=== PATIENT | male | born 1980 | race Caucasian/White ===

== ENCOUNTER 2018-01-10 07:59 | Emergency (ER) | payer BC ==
[2018-01-10 08:06] VITALS: BP 134/87
--- NOTE | 2018-01-10 09:19 | EDM.PDOC ---
<Shauna Guadarrama - Last Filed: 01/10/18 09:11> ED HPI GENERAL MEDICAL PROBLEM - General Chief Complaint: Chest Pain Stated Complaint: HIGH BLOOD PRESSURE Time Seen by Provider: 01/10/18 08:24 - History of Present Illness INITIAL COMMENTS - FREE TEXT/NARRATIVE: Patient is a 37 year old male here today for chest discomfort and lightheadedness. Patient was driving this morning and became dizzy and lightheaded. He took his blood pressure at [employer] and said it was 150s/100s. He states the room was spinning, his heart was racing, and he had tingling in his arms, fingers, and face. He has associated shortness of breath and nausea but no vomiting. He denies losing consciousness. He had a similar episode about 8 years ago that he said was ruled to be related to anxiety. He has a history of hiatal hernia and acid reflux, but does not take daily medication for this. He does not take any regular medications and follows with his PCP yearly. He has a family history of hypertension in his mother. Chest Pain Score (Numeric/FACES): 3 - Related Data Allergies Allergy/AdvReac Type Severity Reaction Status Date / Time No Known Allergies Allergy Verified 01/10/18 08:06 Home Meds: Home Meds . [No Known Home Meds] 01/01/15 [History] Past Medical History Hematologic History: Reports: Hemochromatosis - Past Surgical History GI Surgical History: Reports: Cholecystectomy Social & Family History - Tobacco Use Smoking Status *Q: Never Smoker - Caffeine Use Caffeine Use: Reports: None - Recreational Drug Use Recreational Drug Use: No Course - Vital Signs Last Recorded V/S: Last Vital Signs Temp 35.7 C 01/10/18 08:01 Pulse 99 01/10/18 08:01 Resp 20 01/10/18 08:01 BP 134/87 01/10/18 08:01 Pulse Ox 100 01/10/18 08:01 Departure - Departure Disposition: Home, Self-Care 01 Clinical Impression: Hyperventilation syndrome Instructions: Hyperventilation Referrals: Lena Parker PA [Primary Care Provider] - Forms: ED Department Discharge Additional Instructions: You were seen in the emergency room for tingling of your head, hands, and legs, with associated chest discomfort, nausea, and dizziness. Workup in the ER included an ECG, which was normal. Based on your history, your symptoms were MOST LIKELY due to hyperventilation, which is usually caused by anxiety, but is sometimes caused by other medical problems. Further workup to exclude other medical problems was offered, but declined. If the symptoms remain rare, no treatment is necessary, however, if these become more frequent and start to diminish the quality of your life, we recommend that you follow-up with your PCP, Lena Parker, to discuss treatment options for anxiety. If any other problems, please do not hesitate to return to the ER. <Hao Minaya - Last Filed: 01/16/18 09:10> ED ROS GENERAL - Review of Systems Review Of Systems: See Below Free Text/Narrative/Comment: See Dr. Minaya's note for this info. ED EXAM, GENERAL - Physical Exam Exam: See Below Free Text/Narrative:: see Dr. Minaya's note for this documentation. Departure - Departure Time of Disposition: 09:15
--- NOTE | 2018-01-10 09:19 | EDM.PDOC ---
ED HPI GENERAL MEDICAL PROBLEM - General Chief Complaint: Chest Pain Stated Complaint: HIGH BLOOD PRESSURE Time Seen by Provider: 01/10/18 08:24 Source of Information: Reports: Patient, Family () History Limitations: Reports: No Limitations - History of Present Illness INITIAL COMMENTS - FREE TEXT/NARRATIVE: The patient states that he felt "crappy" this morning, by which he meant he had shortness of breath and upper abdominal discomfort. He went to [facility] but felt worse. He developed tingling of his entire face, hands, and legs. He felt dizzy. He felt slight chest discomfort. He had nausea, but no emesis. No abdominal pain. His symptoms resolved after about 20 minutes. Upon arrival to the ED, it was noted that the patient's oxygen saturation was 100% on room air. The patient states that he had numerous episodes about 8 years ago. At time, he was stationed in [place], and his physicians felt that he was suffering from anxiety. The patient is not currently being treated for anxiety. The patient's PCP is Lena Parker. Chest Pain Score (Numeric/FACES): 3 - Related Data Allergies Allergy/AdvReac Type Severity Reaction Status Date / Time No Known Allergies Allergy Verified 01/10/18 08:06 Home Meds: Home Meds . [No Known Home Meds] 01/01/15 [History] Past Medical History Gastrointestinal History: Reports: GERD, Hiatal Hernia Psychiatric History: Reports: Panic Attack Hematologic History: Reports: Hemochromatosis - Past Surgical History GI Surgical History: Reports: Cholecystectomy Social & Family History - Tobacco Use Smoking Status *Q: Never Smoker - Caffeine Use Caffeine Use: Reports: None - Alcohol Use Alcohol Use History: Yes Alcohol Use Frequency: Socially - Recreational Drug Use Recreational Drug Use: No - Living Situation & Occupation Living situation: Reports: , with Spouse, with Family (2 kids) 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 ED EXAM, GENERAL - Physical Exam Exam: See Below Exam Limited By: No Limitations General Appearance: Alert, WD/WN, No Apparent Distress Eye Exam: Bilateral Eye: Normal Inspection Ears: Normal External Exam, Hearing Grossly Normal Nose: Normal Inspection, No Blood Throat/Mouth: Normal Inspection, Normal Lips, Normal Voice, No Airway Compromise Head: Atraumatic, Normocephalic Neck: Normal Inspection, Full Range of Motion Respiratory/Chest: No Respiratory Distress, Lungs Clear, Normal Breath Sounds, No Accessory Muscle Use Cardiovascular: Normal Peripheral Pulses, Regular Rate, Rhythm, No Gallop, No JVD, No Murmur, No Rub Peripheral Pulses: 4+: Radial (L), Radial (R) GI/Abdominal: Normal Bowel Sounds, Soft, Non-Tender, No Organomegaly, No Distention, No Abnormal Bruit, No Mass (Male) Exam: Deferred Rectal (Males) Exam: Deferred Back Exam: Normal Inspection, Full Range of Motion, NT Extremities: Normal Inspection, Normal Range of Motion, No Pedal Edema, Normal Capillary Refill Neurological: Alert, Oriented, Normal Cognition, No Motor/Sensory Deficits Psychiatric: Normal Affect Skin Exam: Warm, Dry, Intact, Normal Color, No Rash EKG INTERPRETATION EKG Date: 01/10/18 Time: 08:04 Rhythm: NSR Rate (Beats/Min): 98 [place]: Normal P-Wave: Present QRS: Normal ST-T: Normal QT: Normal Comparison: NA - No Prior EKG Course - Vital Signs Last Recorded V/S: Last Vital Signs Temp 35.7 C 01/10/18 08:01 Pulse 99 01/10/18 08:01 Resp 20 01/10/18 08:01 BP 134/87 01/10/18 08:01 Pulse Ox 100 01/10/18 08:01 - Re-Assessments/Exams Free Text/Narrative Re-Assessment/Exam: 01/10/18 09:11 The patient was likely suffering from hyperventilation syndrome, most likely due to anxiety. His symptoms have completely resolved. Workup to exclude metabolic causes for hyperventilation, such as PE, was offered, but declined. I am recommending that he follow up with his PCP, Lena Parker, should his symptoms become more frequent or persistent, to discuss treatment options for anxiety. Departure - Departure Time of Disposition: 09:15 Disposition: Home, Self-Care 01 Condition: Good Clinical Impression: Hyperventilation syndrome - Discharge Information Instructions: Hyperventilation Referrals: Lena Parker PA [Primary Care Provider] - Forms: ED Department Discharge Additional Instructions: You were seen in the emergency room for tingling of your head, hands, and legs, with associated chest discomfort, nausea, and dizziness. Workup in the ER included an ECG, which was normal. Based on your history, your symptoms were MOST LIKELY due to hyperventilation, which is usually caused by anxiety, but is sometimes caused by other medical problems. Further workup to exclude other medical problems was offered, but declined. If the symptoms remain rare, no treatment is necessary, however, if these become more frequent and start to diminish the quality of your life, we recommend that you follow-up with your PCP, Lena Parker, to discuss treatment options for anxiety. If any other problems, please do not hesitate to return to the ER.
== END 2018-01-10 09:36 | disposition home or self-care (01) ==
LOC: JD.ED 07:59
DX: F45.8 Other somatoform disorders (principal)
CPT/HCPCS: 93010; 99283; 99284-25

== ENCOUNTER 2019-10-21 06:33 | Day surgery (SDC) | payer OTHER ==
[~2019-10-21 06:33] MED LIST: Lactated Ringers 1,000 ML IV SCH; Lidocaine 1%/Sod Bicarbonate in NS 8.4% 1 ML Syringe IDERM PRN; Sodium Chloride 0.9% 10 ML Syringe FLUSH PRN
[2019-10-21] MEDS ORDERED: Propofol 200 MG/20 ML SDV ONE (07:19)
[2019-10-21] MEDS ORDERED: Lidocaine 1% 4 ML ONE (07:20)
[2019-10-21] MEDS ORDERED: Midazolam 1 MG/ML 2 ML SDV ONE (07:20)
[2019-10-21] MEDS ORDERED: fentaNYL 100 MCG/2 ML SDV ONE (07:20)
--- NOTE | 2019-10-21 07:28 | PCM.PREANE ---
Preanesthetic Assessment - Procedure Proposed Procedure: EGD - Anesthesia/Transfusion/Family Hx Anesthesia History: Prior Anesthesia Without Reaction Family History of Anesthesia Reaction: No Transfusion History: No Prior Transfusion(s) - Review of Systems General: No Symptoms Pulmonary: No Symptoms Cardiovascular: Palpitations ("I think it is stomack induced"), Dyspnea on Exertion Gastrointestinal: No Symptoms Neurological: No Symptoms Other: Reports: None - Physical Assessment NPO Status Date: 10/20/19 NPO Status Time: 19:36 Vital Signs: Last Vital Signs Temp 36.3 C 10/21/19 06:35 Pulse 84 10/21/19 06:35 Resp 16 10/21/19 06:35 BP 120/87 10/21/19 06:35 Pulse Ox 100 10/21/19 06:35 Height: 1.78 m Weight: 98.883 kg ASA Class: 2 Mental Status: Alert & Oriented x3 Dentition: Reports: Normal Dentition Thyro-Mental Finger Breadths: 3 Mouth Opening Finger Breadths: 3 ROM/Head Extension: Full Lungs: Clear to Auscultation, Normal Respiratory Effort Cardiovascular: Regular Rate, Regular Rhythm - Allergies Allergies/Adverse Reactions: Allergies Allergy/AdvReac Type Severity Reaction Status Date / Time egg Allergy Rash Verified 10/21/19 06:52 - Blood Blood Available: No Product(s) Available: None - Anesthesia Plan Pre-Op Medication Ordered: None - Acknowledgements Anesthesia Type Planned: MAC Pt an Appropriate Candidate for the Planned Anesthesia: Yes Alternatives and Risks of Anesthesia Discussed w Pt/Guardian: Yes Pt/Guardian Understands and Agrees with Anesthesia Plan: Yes PreAnesthesia Questionnaire HEENT History: Reports: Other (See Below) Other HEENT History: nasal congestion, sore throat, sinusitis Cardiovascular History: Reports: None Respiratory History: Reports: Bronchitis, Recurrent Gastrointestinal History: Reports: GERD, Hiatal Hernia Other Gastrointestinal History: dysphagia, epigastric pain Genitourinary History: Reports: Other (See Below) Other Genitourinary History: hematuria CLERK OF COURT History: Reports: None Musculoskeletal History: Reports: None Neurological History: Reports: Other (See Below) Other Neuro History: bulging disc Psychiatric History: Reports: Panic Attack, Other (See Below) Other Psychiatric History: sleep disturbance Hematologic History: Reports: Hemochromatosis, Other (See Below) Other Hematologic History: increased ferritin Immunologic History: Reports: None Oncologic (Cancer) History: Reports: None Dermatologic History: Reports: Other (See Below) Other Dermatologic History: skin neoplasm, scalp cyst with excision - Past Surgical History Head Surgeries/Procedures: Reports: None HEENT Surgical History: Reports: None Cardiovascular Surgical History: Reports: None Respiratory Surgical History: Reports: None GI Surgical History: Reports: Cholecystectomy, EGD Male Surgical History: Reports: Vasectomy Endocrine Surgical History: Reports: None Neurological Surgical History: Reports: None Musculoskeletal Surgical History: Reports: None Oncologic Surgical History: Reports: None - SUBSTANCE USE Smoking Status *Q: Never Smoker Tobacco Use Within Last Twelve Months: No Second Hand Smoke Exposure: No Days Per Week of Alcohol Use: 0 Number of Drinks Per Day: 0 Total Drinks Per Week: 0 Recreational Drug Use History: No - HOME MEDS Home Medications: Home Meds Fluticasone Propionate [Flonase] 1 dose NASBOTH ASDIRECTED PRN 10/20/19 [History ] Ibuprofen [Advil] 400 mg PO DAILY 10/20/19 [History] Simethicone [Gas Relief] 125 mg PO QID PRN 10/20/19 [History] - CURRENT (IN HOUSE) MEDS Current Meds: Current Medications Lactated Ringer's (Ringers, Lactated) 1,000 mls @ 125 mls/hr IV ASDIRECTED JAMSHID Stop: 10/21/19 23:00 Last Admin: 10/21/19 06:53 Dose: 125 mls/hr Lidocaine/Sodium Bicarbonate (Buffered Lidocaine 1% In Ns 8.4%) 0.25 ml IDERM ONETIME PRN PRN Reason: Prior to IV Start Stop: 10/21/19 18:00 Last Admin: 10/21/19 06:52 Dose: 0.25 ml Sodium Chloride (Saline Flush) 10 ml FLUSH ASDIRECTED PRN PRN Reason: Keep Vein Open Stop: 10/21/19 18:00 Discontinued Medications Fentanyl (Sublimaze) Confirm Administered Dose 100 mcg .ROUTE .STK-MED ONE Stop: 10/21/19 07:21 Lidocaine HCl (Xylocaine-Mpf 1%) Confirm Administered Dose 4 mls @ as directed .ROUTE .STK-MED ONE Stop: 10/21/19 07:21 Midazolam HCl (Versed 1 Mg/Ml) Confirm Administered Dose 2 mg .ROUTE .STK-MED ONE Stop: 10/21/19 07:21 Propofol (Diprivan 20 Ml) Confirm Administered Dose 200 mg .ROUTE .[facility] ONE Stop: 10/21/19 07:20
--- NOTE | 2019-10-21 07:53 | PCM48HPAN ---
Post Anesthesia Note - EVALUATION WITHIN 48HRS OF ANESTHETIC Vital Signs in Normal Range: Yes Patient Participated in Evaluation: Yes Respiratory Function Stable: Yes Airway Patent: Yes Cardiovascular Function Stable: Yes Hydration Status Stable: Yes Pain Control Satisfactory: Yes Nausea and Vomiting Control Satisfactory: Yes Mental Status Recovered: Yes Vital Signs: Last Vital Signs Temp 36.3 C 10/21/19 06:35 Pulse 84 10/21/19 06:35 Resp 16 10/21/19 06:35 BP 120/87 10/21/19 06:35 Pulse Ox 100 10/21/19 06:35
--- NOTE | 2019-10-21 07:56 | PCM.PRNOTE ---
- Free Text/Narrative Note: Date: 10/21/2019 Endoscopist: Jun Ramos MD Procedure: esophagogastroduodenoscopy Findings: whitish plaque with mild mucosal erythema of the distal esophagus. Otherwise normal EGD. Biopsies taken of antrum and distal esophagus. Detailed Report: The patient was taken to the GI suite and placed in left lateral decubitus position. A bite block was placed and monitored sedation initiated. Timeout was performed. The endoscope was advanced through the mouth to the second portion of the duodenum. Duodenal mucosa appeared normal. The pylorus, antrum, body, cardia, and fundus appeared normal without ulceration or mucosal lesions. Retroflexion revealed no hiatal hernia. The distal esophagus had white plaque with linear streaks of mild erythema suggestive of reflux esophagitis. Biopsies were taken of the antrum to rule out H pylori and of the distal esophagus. The remainder of the esophagus appeared normal. The patient tolerated the procedure well. Jun Ramos MD General Surgery
[2019-10-21 08:15] VITALS: BP 98/57; PULSE 67
== END 2019-10-21 08:34 | disposition home or self-care (01) ==
LOC: JD.SDS 06:33
PROVIDERS: ATTEND Surgery
DX: K21.0 Gastro-esophageal reflux disease with esophagitis (principal); K44.9 Diaphragmatic hernia without obstruction or gangrene; Z91.012 Allergy to eggs; Z90.49 Acquired absence of other specified parts of digestive tract
CPT/HCPCS: 43239; J2001; J2250; J2704; J3010; J7120

== ENCOUNTER 2020-12-20 08:17 | Emergency (ER) | payer BC ==
[2020-12-20 08:26] VITALS: BP 132/80; PULSE 101
[2020-12-20] MEDS ORDERED: Aspirin 81 MG Tab.Chew PO ONE (08:39)
--- NOTE | 2020-12-20 09:24 | EDM.PDOC ---
ED HPI GENERAL MEDICAL PROBLEM - General Chief Complaint: Chest Pain Stated Complaint: CHEST PAIN Time Seen by Provider: 12/20/20 08:31 Source of Information: Reports: Patient History Limitations: Reports: No Limitations - History of Present Illness INITIAL COMMENTS - FREE TEXT/NARRATIVE: The patient presents with chest pain. He said he woke up with chest pain and he took a shower. When he was in the shower the pain got worse and it felt like his heart rate was fast and skipping beats. He also got short of breath. That is better now and the pain is nearly gone. He has had anxiety before and this is something different. He has no fever, chills, cough, abdominal pain, nausea or vomiting. He has no history of heart disease, hypertension, hypercholesterolemia or diabetes. He does not smoke. He has a history of GERD and he says this feels different. Onset: Gradual Duration: Hour(s): Location: Reports: Chest Quality: Reports: Sharp Severity: Moderate Improves with: Reports: None Worsens with: Reports: None Associated Symptoms: Reports: Chest Pain, Shortness of Breath. Denies: Cough, Fever/Chills, Headaches, Nausea/Vomiting Middle Chest Pain Score (Numeric/FACES): 8 - Related Data Allergies Allergy/AdvReac Type Severity Reaction Status Date / Time egg Allergy Severe Rash Verified 12/20/20 08:26 Home Meds: Home Meds Cyclobenzaprine [Flexeril] 10 mg PO BID 12/20/20 [History] Past Medical History HEENT History: Reports: Other (See Below) Other HEENT History: nasal congestion, sore throat, sinusitis Cardiovascular History: Reports: None Respiratory History: Reports: Bronchitis, Recurrent Gastrointestinal History: Reports: GERD, Hiatal Hernia Other Gastrointestinal History: dysphagia, epigastric pain Genitourinary History: Reports: Other (See Below) Other Genitourinary History: hematuria 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 Musculoskeletal History: Reports: None Neurological History: Reports: Other (See Below) Other Neuro History: bulging disc Psychiatric History: Reports: Anxiety, Panic Attack, Other (See Below) Other Psychiatric History: sleep disturbance Hematologic History: Reports: Hemochromatosis, Other (See Below) Other Hematologic History: increased ferritin Immunologic History: Reports: None Oncologic (Cancer) History: Reports: None Dermatologic History: Reports: Other (See Below) Other Dermatologic History: skin neoplasm, scalp cyst with excision - Past Surgical History GI Surgical History: Reports: Cholecystectomy, EGD Male Surgical History: Reports: Vasectomy Social & Family History - Tobacco Use Tobacco Use Status *Q: Never Tobacco User - Caffeine Use Caffeine Use: Reports: None - Recreational Drug Use Recreational Drug Use: No - Living Situation & Occupation Living situation: Reports: , with Spouse, with Family (2 kids) Occupation: Employed ([employer]) ED ROS GENERAL - Review of Systems Review Of Systems: See Below Constitutional: Reports: No Symptoms HEENT: Reports: No Symptoms Respiratory: Reports: Shortness of Breath Cardiovascular: Reports: Chest Pain Endocrine: Reports: No Symptoms GI/Abdominal: Reports: No Symptoms : Reports: No Symptoms Musculoskeletal: Reports: No Symptoms ED EXAM, GENERAL - Physical Exam Exam: See Below Exam Limited By: No Limitations General Appearance: Alert, No Apparent Distress Ears: Normal External Exam Nose: Normal Inspection Head: Atraumatic, Normocephalic Neck: Normal Inspection Respiratory/Chest: No Respiratory Distress, Lungs Clear, Normal Breath Sounds Cardiovascular: Regular Rate, Rhythm, No Edema, No Murmur GI/Abdominal: Soft, Non-Tender, No Organomegaly, No Mass Back Exam: Normal Inspection Extremities: Normal Inspection #1 Interpretation EKG Date: 12/20/20 Time: 08:26 Rhythm: NSR Rate (Beats/Min): 87 [place]: Normal P-Wave: Present QRS: Normal ST-T: Normal QT: Normal Course - Vital Signs Last Recorded V/S: Last Vital Signs Temp 96.9 F 12/20/20 08:23 Pulse 101 H 12/20/20 08:23 Resp 16 12/20/20 08:23 BP 132/80 12/20/20 08:23 Pulse Ox 98 12/20/20 08:23 - Orders/Labs/Meds Orders: Active Orders 24 hr Category Date Time Status EKG Documentation Completion [RC] ASDIRECTED Care 12/20/20 08:29 Active Holter Monitor 48 Hours [RC] .PRN Care 12/20/20 09:16 Active CXR [Chest 1V Frontal] [CR] Stat Exams 12/20/20 08:39 Taken EKG 12 Lead [EK] Stat Ther 12/20/20 08:29 Ordered Labs: Laboratory Tests 12/20/20 12/20/20 12/20/20 Range/Units 08:15 08:15 08:26 WBC 7.24 (4.23-9.07) K/mm3 RBC 5.37 (4.63-6.08) M/mm3 Hgb 16.3 (13.7-17.5) gm/dl Hct 48.0 (40.1-51.0) % MCV 89.4 (79.0-92.2) fl MCH 30.4 (25.7-32.2) pg MCHC 34.0 (32.2-35.5) g/dl RDW Std Deviation 40.0 (35.1-43.9) fL Plt Count 303 (163-337) K/mm3 MPV 9.3 L (9.4-12.3) fl Neut % (Auto) 59.0 (34.0-67.9) % Lymph % (Auto) 25.3 (21.8-53.1) % [place] % (Auto) 10.4 (5.3-12.2) % Eos % (Auto) 3.6 (0.8-7.0) Baso % (Auto) 0.7 (0.1-1.2) % Neut # (Auto) 4.28 (1.78-5.38) K/mm3 Lymph # (Auto) 1.83 (1.32-3.57) K/mm3 [place] # (Auto) 0.75 (0.30-0.82) K/mm3 Eos # (Auto) 0.26 (0.04-0.54) K/mm3 Baso # (Auto) 0.05 (0.01-0.08) K/mm3 D-Dimer, Quantitative < 0.19 L (0.19-0.50) mg/L Sodium 143 (136-145) mEq/L Potassium 3.8 (3.5-5.1) mEq/L Chloride 106 (98-107) mEq/L Carbon Dioxide 28 (21-32) mEq/L Anion Gap 12.8 (5-15) BUN 14 (7-18) mg/dL Creatinine 1.0 (0.7-1.3) mg/dL Est Cr Clr Drug Dosing 102.40 mL/min Estimated GFR (MDRD) > 60 (>60) mL/min BUN/Creatinine Ratio 14.0 (14-18) Glucose 98 (74-106) mg/dL Calcium 9.7 (8.5-10.1) mg/dL Magnesium 2.0 (1.8-2.4) mg/dl Total Bilirubin 0.5 (0.2-1.0) mg/dL AST 16 (15-37) U/L ALT 34 (16-63) U/L Alkaline Phosphatase 109 (46-116) U/L Troponin I < 0.017 (0.00-0.056) ng/mL Total Protein 7.8 (6.4-8.2) g/dl Albumin 4.4 (3.4-5.0) g/dl Globulin 3.4 gm/dL Albumin/Globulin Ratio 1.3 (1-2) Meds: Medications Discontinued Medications Generic Name Dose Route Start Last Admin Trade Name Freq PRN Reason Stop Dose Admin Aspirin 324 mg 12/20/20 08:39 12/20/20 08:43 Aspirin PO 12/20/20 08:40 324 mg ONETIME ONE Administration - Re-Assessments/Exams Free Text/Narrative Re-Assessment/Exam: 12/20/20 09:23 I ordered aspirin, IV saline lock, EKG, CXR and labs. His EKG shows a NSR with no acute changes. His CXR shows nothing acute. His CBC and CMP look good. His D-dimer and troponin are negative. I will get him a holter monitor for a couple days and have him follow up with his provider in the clinic. Departure - Departure Time of Disposition: 09:25 Disposition: Home, Self-Care 01 Condition: Good Clinical Impression: Atypical chest pain Referrals: Willi Lundberg, CARPENTRY SPECIALIST [Primary Care Provider] - 1 Week Additional Instructions: Wear the holter monitor for 2 days. Take aspirin for any more chest pain. Follow up with Willi Lundberg within a week. Please return if you are worse. Sepsis Event Note (ED) - Evaluation Sepsis Screening Result: No Definite Risk - Focused Exam Vital Signs: Vital Signs Temp Pulse Resp BP Pulse Ox 12/20/20 08:23 96.9 F 101 H 16 132/80 98 - My Orders Last 24 Hours: My Active Orders 12/20/20 08:29 EKG Documentation Completion [RC] ASDIRECTED EKG 12 Lead [EK] Stat 12/20/20 08:39 CXR [Chest 1V Frontal] [CR] Stat 12/20/20 09:16 Holter Monitor 48 Hours [RC] .PRN - Assessment/Plan Last 24 Hours: My Active Orders 12/20/20 08:29 EKG Documentation Completion [RC] ASDIRECTED EKG 12 Lead [EK] Stat 12/20/20 08:39 CXR [Chest 1V Frontal] [CR] Stat 12/20/20 09:16 Holter Monitor 48 Hours [RC] .PRN
--- NOTE | 2020-12-20 09:42 | CR ---
Chest: Portable view of the chest was obtained. Comparison: Prior chest x-ray of 03/11/18. Heart size and mediastinum are within normal limits for portable technique. Lungs are clear with no acute parenchymal change. No discrete bony abnormality is appreciated. Impression: 1. Nothing acute is seen on portable chest x-ray. Diagnostic code #1
== END 2020-12-20 09:30 | disposition home or self-care (01) ==
LOC: JD.ED 08:17
DX: R07.89 Other chest pain (principal); Z91.012 Allergy to eggs
CPT/HCPCS: 36415; 71045; 80053; 83735; 84484; 85025; 85379; 93005; 93225; 93226; 99285; A9270; 93010; 99284